=== PATIENT | female | born 1955 ===

== ENCOUNTER → 2016-12-30 | Outpatient (REF) | LOC: ZLAB.WCH 15:11 | DX: Z01.89 Encounter for other specified special examinations (principal) ==

== ENCOUNTER → 2017-01-30 | Outpatient (REF) | LOC: COL.CARD 10:20 | DX: I49.1 Atrial premature depolarization (principal); I49.3 Ventricular premature depolarization; R06.02 Shortness of breath ==

== ENCOUNTER → 2017-03-31 | Outpatient (REF) | LOC: ZLAB.WCH 18:16 | DX: Z01.89 Encounter for other specified special examinations (principal) ==

== ENCOUNTER → 2017-04-01 | Outpatient (REF) | LOC: ZLAB.WCH 08:39 | DX: Z01.89 Encounter for other specified special examinations (principal) ==

== ENCOUNTER → 2017-05-14 | Outpatient (REF) ==
[2017-05-14 19:24] LABS: C-REACTIVE PROTEIN < 0.5 mg/dL (0.0-0.9)
== END ==
LOC: ZLAB.WCH 19:06
PROVIDERS: Nurse Practitioner Family
DX: Z01.89 Encounter for other specified special examinations (principal)

== ENCOUNTER → 2018-05-10 | Outpatient (REF) | LOC: ZLAB.WCH 18:40 | DX: Z01.89 Encounter for other specified special examinations (principal) ==

== ENCOUNTER → 2018-11-24 | Outpatient (REF) | LOC: ZLAB.WCH 15:55 | DX: Z01.89 Encounter for other specified special examinations (principal) ==